=== PATIENT | female | born 2000 ===

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

== ENCOUNTER 2018-07-02 14:58 | Emergency (ER) | payer OTHER ==
[2018-07-02 14:58] VITALS: BMI 25.0
[2018-07-02 15:17] VITALS: RESP 18; TEMP 99.6
--- NOTE | 2018-07-02 16:11 | ED PDOC ---
HPI: Eye Injury/Pain Time Seen by Provider: 07/02/18 15:32 Chief Complaint (Nursing): Eye Problem Chief Complaint (Provider): Eye problem History Per: Patient History/Exam Limitations: no limitations Onset/Duration Of Symptoms: Days (today) Current Symptoms Are (Timing): Still Present Injury To Eye?: No Wears Contact Lens?: No Associated Symptoms: Discharge From Eye Additional Complaint(s): Patient presents reporting swelling and crusting to her eyes this morning. She reports she felt normal when going to sleep last night. She denies any contact lens use but states she does frequently touch her eyes. Otherwise, no vision changes, purulent discharge, or other complaints. No medications taken for symptoms. Past Medical History Reviewed: Historical Data, Nursing Documentation, Vital Signs Vital Signs: Last Vital Signs Temp 99.6 F 07/02/18 15:16 Pulse 116 H 07/02/18 15:16 Resp 18 07/02/18 15:16 BP 117/72 07/02/18 15:16 Pulse Ox 98 07/02/18 15:16 Primary Care Provider: Non [facility] Provider, - Medical History PMH: Bipolar Disorder Denies: Diabetes, Hepatitis, HIV, HTN, Seizures, Sexually Transmitted Disease - Surgical History Surgical History: Tonsillectomy - Family History Family History: States: Unknown Family Hx - Home Medications Home Medications: Ambulatory Orders Medication Instructions Recorded Acetaminophen [Tylenol 325mg tab] 650 mg PO Q4 PRN #20 tab 03/22/16 Methylprednisolone [Medrol Dose 4 mg PO DAILY #21 mg 11/28/16 Pack (21 tabs)] Promethazine HCl/Codeine 5 ml PO HS #80 ml 11/28/16 [Prometh-Codein 6.25-10 mg/5 ml] Famotidine [Pepcid] 40 mg PO DAILY #20 tablet 06/17/17 Metoclopramide HCl [Reglan] 10 mg PO QID PRN #20 tablet 06/17/17 Amoxicillin [Amoxil 500 mg Cap] 500 mg PO BID #20 cap 08/05/17 Polymyxin/Trimethoprim Sulfate 1 drop XX Q6H 10 Days bottle 07/02/18 [Polytrim Ophth Soln] - Allergies Allergies/Adverse Reactions: Allergies Allergy/AdvReac Type Severity Reaction Status Date / Time kiwi Allergy Mild RASH Verified 07/02/18 15:18 pineapple Allergy ANAPHYLAXIS Verified 07/02/18 15:18 pineapple AdvReac Mild ITCHING Uncoded 07/02/18 15:18 Review of Systems Eyes: Positive for: Redness, Other (crusting around eyes). Negative for: Vision Change Neurological: Negative for: Headache Physical Exam - Reviewed Nursing Documentation Reviewed: Yes Vital Signs Reviewed: Yes - Physical Exam Appears: Positive for: No Acute Distress Head Exam: Positive for: NORMAL INSPECTION Skin: Positive for: Normal Color Eye Exam: Positive for: EOMI, PERRL, Conjunctival injection (mildly present bilaterally) Neck: Positive for: Supple Respiratory: Negative for: Respiratory Distress Neurological/Psych: Positive for: Awake, Alert, Normal Tone - ECG O2 Sat by Pulse Oximetry: 98 (RA) Pulse Ox Interpretation: Normal Medical Decision Making Medical Decision Making: Impression: Conjunctivitis Plan: -- Patient instructed on hand hygiene, informed to not touch eyes often Patient informed to take antibiotics eye drops as prescribed. HR noted to be tachycardic on monitor however repeat VS are normal. Stable for discharge home. Scribe Attestation: Documented by Miracle Torrez, acting as a scribe for NOLBERTO Kang Provider Scribe Attestation: All medical record entries made by the Scribe were at my direction and personally dictated by me. I have reviewed the chart and agree that the record accurately reflects my personal performance of the history, physical exam, medical decision making, and the department course for this patient. I have also personally directed, reviewed, and agree with the discharge instructions and disposition. Disposition - Clinical Impression Clinical Impression: Bacterial conjunctivitis of both eyes - Disposition Referrals: Tristan Leone MD [Staff Provider] - Disposition: Routine/Home Disposition Time: 16:10 Condition: STABLE Prescriptions: Polymyxin/Trimethoprim Sulfate [Polytrim Ophth Soln] 1 drop XX Q6H 10 Days bottle Instructions: Conjunctivitis ([place]) Forms: [facility] (Korean), [facility] ED School/Work Excuse
--- NOTE | 2018-07-02 16:11 | ED PDOC ---
HPI: Eye Injury/Pain Time Seen by Provider: 07/02/18 15:32 Chief Complaint (Nursing): Eye Problem Past Medical History Vital Signs: Last Vital Signs Temp 99.6 F 07/02/18 15:16 Pulse 116 H 07/02/18 15:16 Resp 18 07/02/18 15:16 BP 117/72 07/02/18 15:16 Pulse Ox 98 07/02/18 15:16 Primary Care Provider: Non [facility] Provider, - Medical History PMH: Bipolar Disorder Denies: Diabetes, Hepatitis, HIV, HTN, Seizures, Sexually Transmitted Disease - Surgical History Surgical History: Tonsillectomy - Family History Family History: States: Unknown Family Hx - Home Medications Home Medications: Ambulatory Orders Medication Instructions Recorded Acetaminophen [Tylenol 325mg tab] 650 mg PO Q4 PRN #20 tab 03/22/16 Methylprednisolone [Medrol Dose 4 mg PO DAILY #21 mg 11/28/16 Pack (21 tabs)] Promethazine HCl/Codeine 5 ml PO HS #80 ml 11/28/16 [Prometh-Codein 6.25-10 mg/5 ml] Famotidine [Pepcid] 40 mg PO DAILY #20 tablet 06/17/17 Metoclopramide HCl [Reglan] 10 mg PO QID PRN #20 tablet 06/17/17 Amoxicillin [Amoxil 500 mg Cap] 500 mg PO BID #20 cap 08/05/17 Polymyxin/Trimethoprim Sulfate 1 drop XX Q6H 10 Days bottle 07/02/18 [Polytrim Ophth Soln] - Allergies Allergies/Adverse Reactions: Allergies Allergy/AdvReac Type Severity Reaction Status Date / Time kiwi Allergy Mild RASH Verified 07/02/18 15:18 pineapple Allergy ANAPHYLAXIS Verified 07/02/18 15:18 pineapple AdvReac Mild ITCHING Uncoded 07/02/18 15:18 - ECG O2 Sat by Pulse Oximetry: 98 Disposition - Clinical Impression Clinical Impression: Bacterial conjunctivitis of both eyes - Patient ED Disposition Is Patient to be Admitted: No Counseled Patient/Family Regarding: Diagnosis, Need For Followup, Rx Given - Disposition Referrals: Tristan Leone MD [Staff Provider] - Disposition: Routine/Home Disposition Time: 16:10 Condition: GOOD Prescriptions: Polymyxin/Trimethoprim Sulfate [Polytrim Ophth Soln] 1 drop XX Q6H 10 Days bottle Instructions: Conjunctivitis ([place]) Forms: [facility] (Georgian), [facility] ED School/Work Excuse
[2018-07-02 16:55] VITALS: BP 116/78; PULSE 88; O2SAT 99
== END 2018-07-02 16:25 | disposition home or self-care (01) ==
LOC: H.ER 14:58
DX: H10.89 Other conjunctivitis (principal); Z86.59 Personal history of other mental and behavioral disorders

== ENCOUNTER 2018-07-03 14:59 | Emergency (ER) | payer OTHER ==
[2018-07-03 14:59] VITALS: BMI 25.0
[2018-07-03 16:16] VITALS: O2SAT 99
--- NOTE | 2018-07-03 18:20 | ED PDOC ---
HPI: CCC, URI, Sore Throat Time Seen by Provider: 07/03/18 16:18 Chief Complaint (Nursing): ENT Problem Chief Complaint (Provider): sore throat and fever History Per: Patient History/Exam Limitations: no limitations Additional Complaint(s): 17 y/o F with hx of asthma who presents with sore throat and fever since this morning. Temperature was 100.1F at home and pain has become severe throughout the day causing her to have trouble swallowing as well as some body aches. Denies cough, ear pain, N/V, diarrhea, SOB. She did not receive her Influenza vaccine this season Past Medical History Reviewed: Historical Data Vital Signs: Last Vital Signs Temp 100.3 F H 07/03/18 16:13 Pulse 120 H 07/03/18 16:13 Resp 16 07/03/18 16:13 BP 102/69 07/03/18 16:13 Pulse Ox 99 07/03/18 16:13 Primary Care Provider: Desiree Villanueva - Medical History PMH: Bipolar Disorder Denies: Diabetes, Hepatitis, HIV, HTN, Seizures, Sexually Transmitted Disease - Surgical History Surgical History: Tonsillectomy - Family History Family History: States: Unknown Family Hx - Home Medications Home Medications: Ambulatory Orders Medication Instructions Recorded Acetaminophen [Tylenol 325mg tab] 650 mg PO Q4 PRN #20 tab 03/22/16 Methylprednisolone [Medrol Dose 4 mg PO DAILY #21 mg 11/28/16 Pack (21 tabs)] Promethazine HCl/Codeine 5 ml PO HS #80 ml 11/28/16 [Prometh-Codein 6.25-10 mg/5 ml] Famotidine [Pepcid] 40 mg PO DAILY #20 tablet 06/17/17 Metoclopramide HCl [Reglan] 10 mg PO QID PRN #20 tablet 06/17/17 Amoxicillin [Amoxil 500 mg Cap] 500 mg PO BID #20 cap 08/05/17 Polymyxin/Trimethoprim Sulfate 1 drop XX Q6H 10 Days bottle 07/02/18 [Polytrim Ophth Soln] Ibuprofen [Motrin Tab] 600 mg PO Q6 PRN 7 Days tab 07/03/18 Penicillin VK [Penicillin VK Tab] 500 mg PO BID 10 Days tab 07/03/18 - Allergies Allergies/Adverse Reactions: Allergies Allergy/AdvReac Type Severity Reaction Status Date / Time kiwi Allergy Mild RASH Verified 07/02/18 15:18 pineapple Allergy ANAPHYLAXIS Verified 07/02/18 15:18 pineapple AdvReac Mild ITCHING Uncoded 07/02/18 15:18 Review of Systems Constitutional: Positive for: Fever, Chills ENT: Positive for: Throat Pain. Negative for: Ear Pain, Nose Discharge Respiratory: Negative for: Cough, Shortness of Breath Physical Exam - Reviewed Nursing Documentation Reviewed: Yes Vital Signs Reviewed: Yes - Physical Exam Appears: Positive for: Uncomfortable ENT: Positive for: TM Is/Are (normal B/L), Pharyngeal Erythema (mild), Tonsillar Swelling. Negative for: Sinus Pain/Drainage, Tonsillar Exudate Neck: Positive for: Normal, Painless ROM Cardiovascular/Chest: Positive for: Regular Rate, Rhythm Respiratory: Positive for: Normal Breath Sounds Neurological/Psych: Positive for: Awake, Alert, Oriented - ECG O2 Sat by Pulse Oximetry: 99 Medical Decision Making Medical Decision Making: Rapid Flu Rapid Strep Infectious [place] Tylenol 975mg PO x 1 Penicillin 500mg PO x 1 Disposition - Clinical Impression Clinical Impression: Pharyngitis - Patient ED Disposition Is Patient to be Admitted: No - Disposition Referrals: [facility] [Outside] Disposition: Routine/Home Disposition Time: 20:10 Condition: STABLE Additional Instructions: Follow up with your primary care doctor if your symptoms do not improve or return to ER if your symptoms worsen. Take full course of antibiotics as prescribed. Take Ibuprofen and Tylenol for pain. Prescriptions: Ibuprofen [Motrin Tab] 600 mg PO Q6 PRN 7 Days tab PRN Reason: Pain, Moderate (4-7) Penicillin VK [Penicillin VK Tab] 500 mg PO BID 10 Days tab Forms: [employer] (Czech), [facility] ED School/Work Excuse Print Language: MALTESE
[2018-07-03 20:10] VITALS: BP 100/64; PULSE 90; RESP 18; TEMP 98.5
== END 2018-07-03 20:10 | disposition home or self-care (01) ==
LOC: H.ER 14:59
DX: J02.9 Acute pharyngitis, unspecified (principal); R13.10 Dysphagia, unspecified

== ENCOUNTER 2018-07-11 02:47 | Emergency (ER) | payer SELFPAY ==
[2018-07-11 02:48] VITALS: BMI 25.0
[2018-07-11 03:08] VITALS: RESP 18
--- NOTE | 2018-07-11 03:19 | ED PDOC ---
HPI: CCC, URI, Sore Throat Time Seen by Provider: 07/11/18 03:06 Chief Complaint (Nursing): ENT Problem Chief Complaint (Provider): left ear pain History Per: Patient History/Exam Limitations: no limitations Onset/Duration Of Symptoms: Hrs (3) Current Symptoms Are (Timing): Still Present Associated Symptoms: Sore Throat Additional Complaint(s): 17 y/o female presents for evaluation of left ear pain x 3 hours. Associated sore throat x 1 week. Patient states she is currently taking Penicillin VK for presumed throat infection but does not feel it is helping. Denies fever, drainage from ear, nausea/vomiting, nasal congestion, cough, shortness of breath. Past Medical History Reviewed: Historical Data, Nursing Documentation, Vital Signs Vital Signs: Last Vital Signs Temp 98.5 F 07/11/18 03:02 Pulse 99 H 07/11/18 03:02 Resp 18 07/11/18 03:02 BP 120/77 07/11/18 03:02 Pulse Ox 98 07/11/18 03:02 - Medical History PMH: Bipolar Disorder Denies: Diabetes, Hepatitis, HIV, HTN, Seizures, Sexually Transmitted Disease - Surgical History Surgical History: Tonsillectomy - Family History Family History: States: Unknown Family Hx - Home Medications Home Medications: Ambulatory Orders Medication Instructions Recorded Acetaminophen [Tylenol 325mg tab] 650 mg PO Q4 PRN #20 tab 03/22/16 Methylprednisolone [Medrol Dose 4 mg PO DAILY #21 mg 11/28/16 Pack (21 tabs)] Promethazine HCl/Codeine 5 ml PO HS #80 ml 11/28/16 [Prometh-Codein 6.25-10 mg/5 ml] Famotidine [Pepcid] 40 mg PO DAILY #20 tablet 06/17/17 Metoclopramide HCl [Reglan] 10 mg PO QID PRN #20 tablet 06/17/17 Amoxicillin [Amoxil 500 mg Cap] 500 mg PO BID #20 cap 08/05/17 Polymyxin/Trimethoprim Sulfate 1 drop XX Q6H 10 Days bottle 07/02/18 [Polytrim Ophth Soln] Ibuprofen [Motrin Tab] 600 mg PO Q6 PRN 7 Days tab 07/03/18 Penicillin VK [Penicillin VK Tab] 500 mg PO BID 10 Days tab 07/03/18 Neomycin/Polymyxin/Hydrocortis 4 drop OT TID 7 Days #1 bottle 07/11/18 [Cortisporin Otic Susp] - Allergies Allergies/Adverse Reactions: Allergies Allergy/AdvReac Type Severity Reaction Status Date / Time kiwi Allergy Mild RASH Verified 07/11/18 03:08 pineapple Allergy ANAPHYLAXIS Verified 07/11/18 03:08 pineapple AdvReac Mild ITCHING Uncoded 07/11/18 03:08 Review of Systems ROS Statement: Except As Marked, All Systems Reviewed And Found Negative ENT: Positive for: Ear Pain, Throat Pain Physical Exam - Reviewed Nursing Documentation Reviewed: Yes Vital Signs Reviewed: Yes - Physical Exam Appears: Positive for: Well, Non-toxic, No Acute Distress Head Exam: Positive for: ATRAUMATIC, NORMAL INSPECTION, NORMOCEPHALIC Skin: Positive for: Normal Color Eye Exam: Positive for: Normal appearance ENT: Positive for: TM Is/Are (clear TMs bilaterally. Left EAC slightly edematous, tender with speculum insertion. + pinna and tragus manipulation. Right EAC clear). Negative for: Nasal Congestion, Pharyngeal Erythema, To nsillar Exudate, Tonsillar Swelling Cardiovascular/Chest: Positive for: Regular Rate, Rhythm Respiratory: Positive for: Normal Breath Sounds Back: Positive for: Normal Inspection Extremity: Positive for: Normal ROM Neurological/Psych: Positive for: Awake, Alert, Oriented (x3) - ECG O2 Sat by Pulse Oximetry: 98 - Progress ED Course And Treament: -rapid strep -tylenol PO Patient educated on findings, discharged with rx cortisporin hc Advised to continue current medications Follow up PMD within 2-3 days Return precautions given Disposition - Clinical Impression Clinical Impression: Otitis externa, Sore throat - Patient ED Disposition Is Patient to be Admitted: No Counseled Patient/Family Regarding: Studies Performed, Diagnosis, Need For Followup, Rx Given - Disposition Referrals: Desiree Villanueva APN [Primary Care Provider] - [facility] [Outside] Disposition: Routine/Home Disposition Time: 04:47 Condition: IMPROVED Prescriptions: Neomycin/Polymyxin/Hydrocortis [Cortisporin Otic Susp] 4 drop OT TID 7 Days #1 bottle Instructions: Outer Ear Infection, Sore Throat in Adults
[2018-07-11 05:18] VITALS: BP 118/74; PULSE 89; TEMP 98.8; O2SAT 100
== END 2018-07-11 04:40 | disposition home or self-care (01) ==
LOC: H.ER 02:47
DX: H60.92 Unspecified otitis externa, left ear (principal); J02.9 Acute pharyngitis, unspecified; F31.9 Bipolar disorder, unspecified